=== PATIENT | male | born 1955 | race Caucasian/White ===

== ENCOUNTER 2024-12-06 08:14 | Outpatient (CLI) | payer BC, SELFPAY ==
[2024-12-06] MEDS: REGADENOSON 0.4 MG/5 ML SYRINGE IVP (11:09)
[2024-12-06] MEDS: SODIUM CHLORIDE 0.9 % (FLUSH) 10 ML SYRINGE IVF (11:11)
[2024-12-06 11:40] VITALS: BP 127/81; PULSE 87
--- NOTE | 2024-12-06 12:37 | P.STN_ITS ---
Stress Test Note Date Date Seen: 12/06/24 Date of test: 12/06/24 Providers Referring provider: Vanessa Alvarenga Primary care provider: Gordon Warren Stress test physician: Dana Mejia Stress Test Note Stress test ordered: Lexiscan Indication for test: Atrial fibrillation Stress test medicine: Lexiscan Results discussion: Resting EKG: Atrial fibrillation, ventricular rate 81 beats per minute. Resting blood pressure: 141/83 Stress test: Patient is consented on Lexiscan that has been ordered for his cardiac stress test, he agrees to proceed. Patient was able to perform walking Lexiscan. He had no symptoms during this test. There was no definitive ischem ia, maintained atrial fibrillation during the test. There was no concerning blood pressure changes. Patient will be discharged after obtaining his post stress nuclear images. Impression: Atrial fibrillation, negative objective symptoms: await nuclear images to couple this for a full formal diagnostic test. Follow up suggested: Patient will have post-stress images obtained and then discharge to home. He will wait to hear from Dr. Warren for final results.
== END 2024-12-06 08:15 | disposition home or self-care (01) ==
LOC: STRESS 08:24
PROVIDERS: PCP Family Medicine; Visit Provider Internal Medicine
DX: I48.91 Unspecified atrial fibrillation (principal); I10 Essential (primary) hypertension; R94.31 Abnormal electrocardiogram [ECG] [EKG]
CPT/HCPCS: 78452; 93016; 93017; A9500; J2785

== ENCOUNTER 2025-05-10 15:02 | Emergency (ER) | payer BC, SELFPAY ==
[2025-05-10] VITALS (19 sets, daily range): BP systolic 117–125; BP diastolic 68–82; PULSE 61–75; RESP 15–29; TEMP 36.3; O2SAT 95–98; BMI 32.1
--- OUTSIDE RECORDS SUMMARY | 2025-05-10 15:05 | XMS_ITS | Clinical Summary ---
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 90 Tablet 3 4 Active doxazosin (CARDURA) 4 mg tabletIndication s:HTN (hypertension) Take 1 Tablet (4 mg) by mouth at bedtime. 90 Tablet 3 4 Active lisinopriL (PRINIVIL; ZESTRIL) 40 mg tabletIndication s:Hypertension, unspecified type Take 1 Tablet (40 mg) by mouth once daily. 90 Tablet 3 4 Active vit A/vit C/vit E/zinc/copper (PRESERVISION AREDS ORAL) Take 1 Tablet by mouth two times daily. Active rivaroxaban (Xarelto) 20 mg tabletIndication s:New onset atrial fibrillation (HC) Take 1 Tablet (20 mg) by mouth once daily with evening meal. 90 Tablet 3 5 Active sotaloL (BETAPACE) 80 mg tabletIndication s:Paroxysmal atrial fibrillation (HC) Take 1 Tablet (80 mg) by mouth two times daily before meals. 60 Tablet 3 5 Active rosuvastatin (CRESTOR) 10 mg tabletIndication s:Elevated LDL cholesterol level Take 1 Tablet (10 mg) by mouth at bedtime. 90 Tablet 3 5 Active prednisoLONE acetate 1% ophthalmic (Pred Forte) suspensionIndica tions:Nuclear sclerotic cataract of left eye Start drops in affected eye after surgery Left eye 10/06/24 One drop four times a day for three weeks. 5 mL 1 5 05/03/20 25 Discontin ued(*Maribel ent states no longer taking) hydrocortisone 1 % creamIndications :Paroxysmal atrial fibrillation (HC) Apply topically to affected area(s) 4 times daily if needed for Itching. 5 05/03/20 25 Discontin ued(*Maribel ent states no longer taking) Active Problems Problem Noted Date Diagnosed Date Impaired fasting glucose 08/05/2012 Elevated LDL cholesterol level 08/05/2012 HTN (hypertension) 07/22/2012 Benign neoplasm of colon 11/29/2008 Overview (11/03/2023): Colonoscopy 11/2008 polyp repeat in 5 years Colonoscopy 10/2023 3-TA, repeat in 5 years Encounters Date Type Department Care Team Description 05/10/2025 Telephone [facility] [address] [place] [address] Woody Grayson MD Appointment 05/10/2025 Travel 05/10/2025 Nurse Triage [facility] [address] [place] [address] VoteGordon garcia MD Lightheaded 05/03/2025 1:00 PM CDT Office Visit [facility] [id number] [place] [address] [address] [place] [address] Sandra Brice PA Follow Up (FOLLOW UP, CARDIOVERSION DONE 03/20, NEEDS DOT CLEARANCE, DX: Paroxysmal atrial fibrillation (HC) [I48.0] PT states feeling fine, no cardiac symptoms today. Just see how he is doing, nothing else to note. ) 05/03/2025 Travel 03/24/[address] [facility] [address] [place] [address] Jimena Cruz NP 1 scan: (1-Ord) NFLD-EKG-03/23/25 03/23/2025 11:00 AM CDT Nurse/Clinic Staff Only [facility] [address] [place] [address] Cardiovascular Diagnostic Testing (EKG PER JIMENA CRUZ NP/DR. ALVARENGA ) 03/22/2025 Travel 03/20/2025 12:31 PM CDT Anesthesia Event [facility] [address] [place] [address] Lc Portillo MD 03/20/2025 9:56 AM CDT - 03/20/2025 2:33 PM CDT Hospital Encounter [facility] [address] [place] [address] Vanessa Alvarenga MD Geniesse, Brian Christopher, JUICE Haywood, Janet Boyce MD Paroxysmal atrial fibrillation (HC) Discharge Disposition: Home Self Care 03/20/2025 Travel 03/15/2025 8:00 AM CDT Office Visit [facility] [address] [address] Vanessa Alvarenga MD Follow Up (3 month follow up - [facility]06 at [place]Dx: Paroxysmal atrial fibrillation (HC) [I48.0] /PT states feeling good. New onset AFIB. - No cardiac symptoms today. Discuss plan of care.) 03/15/2025 Travel 02/11/2025 Refill [facility] [address] [address] aVnessa Alvarenga MD Refill Request (Xarelto) from Last 3 Months Immunizations Immunization Administration Dates Next Due Tdap 06/17/2018 Zoster (Shingrix-RZV, recombinant) 08/23/2020, Family History Medical History Relation Name Comments Lung disease Father Cancer Mother Uterus Relation Name Status Comments Father Mother Social History Tobacco Use Types Packs/Day Years Used Date Smoking Tobacco: Former Cigarettes Q uit: 08/24/1999 Smokeless Tobacco: Never Tobacco Cessation:Counseling Given: Yes Alcohol Use Standard Drinks/Week Comments Yes 0 (1 standard drink = 0.6 oz pur e alcohol) 24 drinks per week PHQ-2 Answer Date Recorded PHQ-2 TOTAL SCORE 0 06/22/2024 Social Connections Answer Date Recorded Do you often feel lonely or isolated from those around you? 0 09/27/2024 Alcohol Use Answer Date Recorded How often do you have a drink containing alcohol ? 4 05/03/2025 How many drinks containing a lcohol do you have on a typical day when you are drinking? 1 05/03/2025 How often do you have five or more drinks on one occasion? 4 05/03/2025 Financial Resource Strain Answer Date R ecorded Difficulty of Paying Living Expenses 3 09/27/2024 Difficulty of Paying Living Expenses Not on file 09/27/2024 Food Insecurity Answer Date Recorded Do you worry your food will run out before you are able to buy more? 1 09/27/2024 Transportation Needs Answer Date Record ed Does lack of transportation keep you from medica l appointments? 1 09/27/2024 Does lack of transportation keep you from work, meetings or getting things that you need? 1 09/27/2024 Housing Stability Answer Date Recorded What is your housing situation today? 1 09/27/2024 Interpersonal Safety Answer Date Record ed Are you being hit, kicked, p ushed or yelled at (see row info)? No 03/20/2025 Interpersonal Safety Abuse 12 - 18 Not on file 03/20/2025 Interpersonal Safety Ambulatory Vulnerability No t on file 03/20/2025 Utilities Answer Date Recorded Do you have trouble paying f or utilities (for example, heat, electricity, water, phone)? 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[employer] Gender Identity Not on file Sexual Orientation Not on file Travel History Travel Start Travel End [place] 04/23/2025 05/01/2025 Obstetrics History Last Filed Vital Signs Vital Sign Reading Time Taken Comments Blood Pressure 122/82 05/03/2025 1:02 PM CDT Pulse 72 05/03/2025 1:02 PM CDT Temperature 36.6 C (97.8 F) 10/06/2024 7:30 AM ARTIST [employer]NEQU[employer]ING Respiratory Rate 18 03/20/2025 12:4 2 PM CDT Oxygen Saturation 97% 05/03/2025 1:02 PM CDT Inhaled Oxygen Concentration - - Weight 110.4 kg (243 lb 6.4 oz) 025 10:40 AM CDT Height 188 cm (6' 2) 03/20/2025 10:40 AM CDT Body Mass Index 31.25 03/20/2025 10:40 AM CDT Plan of Treatment Health Maintenance Due Date Last Done Comments Hepatitis C screening for age 18-79 1975 Pneumococcal series for age 50+ (1 of 2 - PCV) 1976 RSV vaccine for adults or (1 - Risk 60-74 years 1-dose series) 2017 AAA screening age 65-74 2022 COVID-19 vaccine series (2024- season) 2025 10/11/2022, 07/26/2021, 12/28/2020, Additional history exists Influenza Vaccine (#1) 2025 Depression screening for age 12+ 06/22/2025 06/22/2024, 06/24/2023, 06/11/2022, Additional history exists BMI (ht and wt on same day) for age 18+ 03/15/2026 03/15/2025, 11/23/2024, 09/28/2024, Additional history exists Tetanus booster 06/17/2028 06/17/2018 Colonoscopy through age 75 10/29/202810/29, 10/30/2023, 10/30/2023, Additional history exists Lipids for age 45-75 06/22/2029 06/22/2024, 06/24/2023, 06/11/2022, Additional history exists Zoster (shingles) series for age 50+ Completed 08/23/2020, 06/20/2020 Hepatitis B series for 19+ Aged Out N o longer eligible based on patient's age to complete this topic Medical Devices Implanted Type Area Special Education Coordinator Device Identifier Shelf Expiration Date Model / Serial / Lot Iol Titus Preload 1 Pc Clear 6mm 19.50 Diopter Tecnis - [id number] Implanted:Qty: 1 on 10/06/2024 by Guille Lakhani MD at [facility] Left: Eye [employer] 04/04/2027 [id number] / [id number] / NA Procedures Procedure Name Priority Date/Time Associated Diagnosis Comments EKG 12 LEAD Today 05/03/2025 1:08 PM CDT Screening for cardiovascular condition EKG 12 LEAD Routine 03/24/2025 12:59 PM CDT Paroxysmal atrial fibrillation (HC) EKG 12 LEAD Post Op 03/20/2025 12:36 PM CDT ISTAT CHEM 8 Timed 03/20/2025 11:02 AM CDT EKG 12 LEAD Preop 03/20/2025 10:32 AM CDT SCAN-CARDIAC STRIP 03/20/2025 12 :00 AM CDT EXTENDED HOLTER Routine 02/13/2025 Longstanding persistent atrial fibrillation (HC) LIPID PANEL W REFLEX MEASURED LDL Routine 06/22/2024 8:20 AM CDT Elevated LDL cholesterol level COLONOSCOPY SCREENING Routine 10/30/2023 10:16 AM ARTIST [employer]NEQUIN COLORING Positive colorectal cancer screening using DNA-based stool test from Last 3 Months or Most Recently Relevant to Health Maintenance Results * EKG 12 LEAD (05/03/2025 1:08 PM CDT) Only the most recent of4 resultswithin the time period is included. Pathologist [facility] Interpretation Atrial fibrillation Abnormal ECG When compared with ECG of 20-Mar-2025 12:36, Atrial fibrillation has replaced Sinus rhythm Non-specific change in ST segment in Inferior leads Ventricular Rate 72 BPM Atrial Rate BPM P-R Interval ms QRS Duration 88 ms QT 394 ms QTc 431 ms P [place] degrees R [place] 80 degrees T [place] 77 degrees 05/03/2025 1:08 PM CDT 05/04/2025 1:40 PM CDT Sandra HILTON EKG ORD Final Res ult * ISTAT CHEM 8 (03/20/2025 11:02 AM CDT) Pathologist [facility] SODIUM, POCT 03/21/2025 5:54 AM CDT [facility] Comment:Unable to determine. POTASSIUM, POCT 4.3 3.5 - 5.0 mmol/L 03/21/2025 5:54 AM CDT [facility] CHLORIDE, POCT 03/21/2025 5:54 AM CDT [facility] Comment:Unable to determine. CO2,TOTAL, POCT 03/21/2025 5:54 AM CDT [facility] Comment:Unable to determine. ANION GAP, POCT 03/21/2025 5:54 AM CDT [facility] Comment:Unable to calculate. GLUCOSE, POCT 03/21/2025 5:54 AM CDT [facility] Comment:Unable to determine. IONIZED CALCIUM, POCT 03/21/2025 5:54 AM CDT [facility] Comment:Unable to determine. BUN, POCT 03/21/2025 5:54 AM CDT [facility] Comment:Unable to determine. CREATININE, POCT 03/21/2025 5:54 AM CDT [facility] Comment:Unable to determine. BUN/CREAT RATIO, POCT 03/21/2025 5:54 AM CDT [facility] Comment:Unable to calculate. eGFR 03/21/2025 5:54 AM CDT [facility] Comment:Unable to calculate. HEMATOCRIT, POCT 03/21/2025 5:54 AM CDT [facility] Comment:Unable to determine. HEMOGLOBIN, POCT 03/21/2025 5:54 AM CDT [facility] Comment:Unable to determine. Blood BLOOD SPECIMEN / Unknown 03/20/2025 11:02 AM CDT 03/21/2025 5:54 AM CDT [facility] Luis M Alvarenga MD CHEMISTRY Final Result [facility] [address] [place] [address], [place] * SCAN-CARDIAC STRIP (03/20/2025 12:00 AM CDT) Narrative 03/20/2025 12:00 AM CDT Ordered by an unspecified provider. us Other Clinical Staff OTHER Final Resul t * ZIO PATCH XT - weekly to monthly symptoms. (02/13/2025) 02/13/2025 Narrative Silvia Moreno MD - 03/07/2025 12:00 AM CDT Agree with Findings. Please see scan document for full report. Signed By Silvia Moreno MD Procedure Note Silvia Moreno MD - 03/07/2025 Agree with Findings. Please see scan document for full report. Signed By Silvia Moreno MD Vanessa Alvarenga MD CARDIAC SERVICES ORD Final Re sult * LIPID PANEL W REFLEX MEASURED LDL (06/22/2024 8:20 AM CDT) CHOLESTEROL, TOTAL 199 <200 mg/dL [facility] HDL CHOLESTEROL 89 > OR = 40 mg/dL [facility] TRIGLYCERIDES 46 <150 mg/dL [facility] LDL-CHOLESTEROL 96 mg/dL (calc) [facility] Comment: Reference range: <100 Desirable range <100 mg/dL for primary prevention; <70 mg/dL for patients with CHD or diabetic patients with > or = 2 CHD risk factors. LDL-C is now calculated using the Micheal-Sharma calculation, which is a validated novel method providing better accuracy than the Friedewald equation in the estimation of LDL-C. Micheal SS et al. CIERA. 2013;310(19): 3855-0473 (http://education.MV Sist[employer].NurseGrid/faq/MGP818) CHOL/HDLC RATIO 2.2 <5.0 (calc) [facility] NON HDL CHOLESTEROL 110 <130 mg/dL (calc) [facility] Comment: For patients with diabetes plus 1 major ASCVD risk factor, treating to a non-HDL-C goal of <100 mg/dL (LDL-C of <70 mg/dL) is considered a therapeutic option. Blood BLOOD SPECIMEN / Unknown 06/22/2024 8:20 AM CDT 06/22/2024 8:21 AM CDT Gordon Warren MD CHEMISTRY Final Re sult [employer] [facility] [address] [place] [address], [facility] [address] [place] [address] * COLONOSCOPY (10/30/2023 10:57 AM ARTIST MANNEQUIN COLORING) 10/30/2023 10:5 7 AM ARTIST MANNEQUIN COLORING Narrative Transcriptions Micheal Clayton MD - 10/30/2023 11:41 AM CST Patient Name: Uziel Gonzalez Procedure Date: 10/30/2023 Gender: Male Date of : 1955 Admit Type: Outpatient Procedure: Colonoscopy Proceduralist: Micheal Clayton MD , Ashly Monreal (Nurse), Amber Mtz (Nurse) Referring MD: Gordon Warren Indications/Pre-Op Diagnosis: Last colonoscopy: November 2008, Positive Cologuard test Medications: Fentanyl 100 micrograms IV, Midazolam 4 mgIV, The level of sedation administered wasmoderate Procedure Description: The patient had risks, benefits and alternatives explained to andgave informed consent. The patient had a stable cardiopulmonary status and judged an adequate candidate for conscious sedation. The endoscope [id number] was passed through the anus andadvanced to the cecum, identified by appendiceal orifice and ileocecal valve.The colonoscopy was performed without difficulty. The patient toleratedthe procedure well. The quality of the bowel preparation was good. The ileocecal valve, appendiceal orifice, and rectum were photographed. Complications: No immediate complications. Estimated Blood Loss & Specimen: Estimated blood loss: none. Specimen collected - Yes and sent to Laboratory Findings: The perianal and digital rectal examinations were normal. A 3 mm polyp was found in the cecum. The polyp was sessile. The polyp was removed with a cold snare. Resection and retrieval werecomplete. A 4 mm polyp was found in the ascending colon. The polyp was sessile. The polyp was removed with a cold snare. Resection and retrieval were complete. A 2 mm polyp was found in the ascending colon. The polyp was sessile. The polyp was removed with a cold biopsy forceps. Resection was complete, but the polyp tissue was not retrieved. A 5 mm polyp was found in the rectum. The polyp was pedunculated. The polyp was removed with a cold snare. Resection and retrieval were complete. The exam was otherwise without abnormality on direct and retroflexion views. Impressions/Post-Op Diagnosis: - One 3 mm polyp in the cecum, removed with a cold snare. Resectedand retrieved. - One 4 mm polyp in the ascending colon, removed with a cold snare. Resected and retrieved. - One 2 mm polyp in the ascending colon, removed with a cold biopsy forceps. Complete resection. Polyp tissue not retrieved. - One 5 mm polyp in the rectum, removed with a cold snare. Resectedand retrieved. - The examination was otherwise normal on direct and retroflexionviews. Recommendation: - Patient has a contact number available for emergencies. The signsand symptoms of potential delayed complications were discussed with the patient. Return to normal activities tomorrow. Written discharge instructions were provided to the patient. - Resume previous diet. - Continue present medications. - Await pathology results. - Repeat colonoscopy is recommended. The colonoscopy date will be determined after pathology results from today's exam become available for review. Moderate Sedation: A time out was performed before the procedure. Moderate (conscious) sedation was administered by the endoscopy nurse and supervised bythe endoscopist. The following parameters were monitored: oxygensaturation, heart rate, blood pressure, EKG, CO2, respiratory rate, adequacy of pulmonary ventilation and reponse to care. Please refer to the patient's medical record flowsheets and nursing notes for moderate sedation details. Total physician intraservice time was 26 minutes. Micheal Clayton MD 10/30/2023 11:39:15 AM This report has been signed electronically. Note Initiated On: 10/30/2023 10:57 AM Procedure Code(s): --- Professional --- 45992, Colonoscopy, flexible; with removalof tumor(s), polyp(s), or other lesion(s) bysnare technique 96674, 59, Colonoscopy, flexible; withbiopsy, single or multiple Diagnosis Code(s): --- Professional --- D12.0, Benign neoplasm of cecum D12.2, Benign neoplasm of ascending colon D12.8, Benign neoplasm of rectum R19.5, Other fecal abnormalities CPT copyright 2021 [employer]. All rights reserved. The codes documented in this report are preliminary and upon auditing coder reviewmay be revised to meet current compliance requirements. 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
--- NOTE | 2025-05-10 15:20 | ED.GENADULT ---
HPI - General Adult General Time Seen by Provider: 15:20 Date Seen: 05/10/25 Chief complaint: Cough Stated complaint: SOB, Light headed, cough- has AFIB Time Seen by Provider: 05/10/25 15:08 Source: patient and RN notes reviewed Mode of arrival: ambulatory Limitations: no limitations History of Present Illness HPI narrative: This 70-year-old male is referred by Urgent Care today for further workup of cough, shortness of breath and lightheadedness. Patient was in urgent care earlier today and there was discussion about his atrial fibrillation, his pulse is being low at 1 time at 52. There was no documentation of it being elevated. We did review that atrial fibrillation is rate controlled when it is between 60-100. Sometimes patients will drop a little lower but if they are not going severely bradycardic they should be fine. Brief small episodes above 100 are usually well tolerated by patients. It is when there is sustained tachycardia or bradycardia that rate control issues are considered. He certainly does not seem to have that right now. He is anticoagulated with Xarelto and has not missed any doses. He had a myocardial perfusion scan here in November which was normal. He states the person told them that they were at the limits of what they could do there, he could be having issues with potentially impending stroke or heart attack given his symptoms. He has been sick going on 8 days now. They all did not feel well coming back from [place]. They did land 2 hour of [place] and were gone for about 9 days. He has had cough and congestion. He has felt short of breath. He did not go to work last week for while due to his symptoms. He has felt lightheaded. No chest pain. COVID was done in Urgent Care, was a PCR and has come back positive. He was not aware of that. He had EKGs and a basic metabolic panel that were reassuring, sodium just minimally low at 131 but not something assess the taping emergent intervention. His 1st EKG had a heart rate of 66 and a 2nd EKG at a heart rate of 52. I have included the formal radiology over read of his x-ray from urgent care. There was no acute pathology. Related Data Home Medications ?Medication ?Instructions ?Recorded ?Confirmed amlodipine 10 mg tablet 10 mg PO DAILY 05/10/25 05/10/25 doxazosin 4 mg tablet 4 mg PO DAILY 05/10/25 05/10/25 lisinopril 40 mg tablet 40 mg PO DAILY 05/10/25 05/10/25 metoprolol succinate 25 mg 25 mg PO DAILY 05/10/25 05/10/25 tablet,extended release 24 hr rivaroxaban 20 mg tablet (Xarelto) 20 mg PO DAILY 05/10/25 05/10/25 rosuvastatin 10 mg tablet 10 mg PO QPM 05/10/25 05/10/25 sotalol 80 mg tablet 80 mg PO BID 05/10/25 05/10/25 Allergies Allergy/AdvReac Type Severity Reaction Status Date / Time No Known Drug Allergies Allergy Verified 05/10/25 15:09 Review of Systems Status of ROS: Reports: 6 or more systems reviewed and unremarkable except as noted in History and below [facility] Social History Smoking Status: Never smoker Exam Const: Vital Signs, click to edit/add: Vital Signs - 24 hr 05/10/25 15:15 05/10/25 15:18 05/10/25 16:50 Temperature 97.4 F L Pulse Rate [Pulse Oximeter] 68 73 Pulse Rate [orthos tatic lying] 63 Pulse Rate [orthos tatic sitting] 70 Pulse Rate [orthos tatic standing] 75 Respiratory Rate 16 Blood Pressure [Le ft Upper Arm] 117/68 Blood Pressure [Ri ght Upper Arm] 117/68 Blood Pressure [or thostatic lying] 121/77 Blood Pressure [or thostatic sitting] 121/79 Blood Pressure [or thostatic standing ] 125/82 Pulse Oximetry 98 98 Oxygen Delivery Me thod Room Air This 70-year-old male is alert, interactive, no apparent distress. He is seen in exam room 4, sitting up in a chair. He is wearing a mask. Sclera clear, speech is normal. Neck is supple, no adenopathy or masses. Lungs are clear, good air entry, no wheezing or crackles, no tachypnea, no accessory muscle use. Heart rate is controlled, somewhat irregular, no murmur noted, normal S1-S2, no S3-S4. He has sock line in did take a shins but he states his legs are at baseline, no edema. Abdomen soft, nontender. Documenting provider has reviewed patient's vital signs: yes Course Course ED Course: We will obtain a troponin and a CBC on this patient. Unfortunately, he likely is having ongoing symptoms from COVID that there is nothing for us to intervene on. His EKG here today shows he is rate controlled. He is not hypoxic. He is well out of treatment window for medications for COVID and Paxlovid is theoretically contraindicated with the Xarelto. The Xarelto should prevent him from having thrombotic events such as strokes from COVID. Likewise with a normal nuclear medicine test this November, anticoagulation with Xarelto, I really a.m. not worried about any concern for ischemic disease. We will do orthostatics on him as well. He may just have some lingering longer-term COVID symptoms. He may unfortunately be somebody that is going to take longer to resolve. Reevaluation(s) Time of Reevaluation #1: 17:21 Reevaluation #1: Have reviewed with patient that his orthostatic vitals were good. He has been on monitoring here, his rate control is excellent, no hypoxia, O2 sats in the upper 90s. His troponin is normal. We reviewed his recent nuclear medicine stress test without any ischemia which is certainly reassuring. He is on Xarelto which would protect against thrombotic strokes or blood clots from complications of COVID. I think his symptoms are still from COVID. His wanted to know about still being infective to others. His test was a PCR earlier, antigen testing would tell us about ongoing viral shedding. They can do that outpatient if they desire. He notes overall his cough is much improved, not like it was the beginning. 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 I reviewed with him that that is certainly the case but he has complicating COVID now which I think is responsible for his symptoms. He has no evidence of any congestive heart failure, his rate is controlled. I think he is reasonable for discharge to home without any further workup. We did discuss ongoing monitoring and he may need to return. I have recommended that they get a pulse oximeter. Patient was able to go for a walk this morning without difficulty. His white blood count is normal and not indicative an occult secondary bacterial infection. Again, he had a normal chest x-ray from urgent care. Vital Signs Vital signs: Initial Vital Signs Pulse Rate 68 09/17/25 15:15 Pulse Rhythm Irregular 05/10/25 15:15 Blood Pressure 117/68 05/10/25 15:15 Blood Pressure Mean 84 05/10/25 15:15 Blood Pressure Position Sitting 05/10/25 15:15 Pulse Oximetry 98 05/10/25 15:15 Oxygen Delivery Method Room Air 05/10/25 15:15 Vital Signs Pulse Rate 68 05/10/25 15:15 Blood Pressure 117/68 05/10/25 15:15 Pulse Oximetry 98 05/10/25 15:15 Oxygen Delivery Method Room Air 05/10/25 15:15 Temperature 97.4 F L 05/10/25 15:18 Pulse Rate 63 05/10/25 16:50 Respiratory Rate 16 05/10/25 15:18 Blood Pressure 121/77 05/10/25 16:50 Pulse Oximetry 98 05/10/25 15:18 Oxygen Delivery Method Room Air 05/10/25 15:15 Medical Decision Making Lab Data Lab results reviewed: Yes I reviewed the patient's lab results Labs: Lab Results 05/10/25 05/10/25 Range/Units 15:47 16:15 WBC 6.89 (4.50-11.00) K/uL RBC 4.27 L (4.30-5.90) m/uL Hgb 12.8 L (13.5-17.5) gm/dL Hct 37.2 (37.0-53.0) % MCV 87 (80-100) fL MCH 30 (26-34) pg MCHC 34 (32-36) gm/dL RDW Coeff of Marianne 11.7 (11.5-15.5) % Plt Count 370 (140-440) K/uL Neut % (Auto) 62.0 (42.0-72.0) % Lymph % (Auto) 20.3 (20-44) % [place] % (Auto) 13.1 H (0.0-11.0) % Eos % (Auto) 3.0 (0.0-7.0) % Baso % (Auto) 0.9 (0.0-3.0) % Neut # (Auto) 4.27 (1.7-7.0) K/uL Lymph # (Auto) 1.40 (0.90-2.90) K/uL [place] # (Auto) 0.90 (0.00-0.90) K/UL Eos # (Auto) 0.21 (0.00-0.50) K/uL Baso # (Auto) 0.06 (0.00-0.30) K/uL Abs Immat Gran (auto) 0.05 (0.00-0.30) K/uL Imm/Tot Granulo (auto) 0.7 % POC Troponin I 0.00 L (0.01-0.04) ng/ml Imaging Data Chest x-ray: Attestation: I have reviewed the pertinent imaging results. Radiologist's impression: Patient: FILEMON MAYS Facility:?[facility] Patient ID:?[id number] Site Patient ID:?[id number]. Site :?[id number] Study:?XRay-Chest 2 V-05/10/2025 2:38:59 PM Ordering Physician:?Asael Will Final Report: INDICATION: Lightheadedness TECHNIQUE: Chest 2 views COMPARISON: None FINDINGS: Cardiovascular and mediastinum: Cardiac silhouette is mildly enlarged. There is tortuosity of the descending thoracic aorta. Lungs and pleural spaces: Lungs are clear. No sign of infiltrate or mass. No sign of pleural effusion. No pneumothorax. Bones and soft tissues: No significant findings. IMPRESSION: No acute findings. Dictated by Billy Bowles MD @ 05/10/2025 2:43:59 PM (Electronic Signature) ECG Data Attestation: I personally reviewed and interpreted this ECG as follows: (Atrial fibrillation, 70 beats per minute. No ischemic change.) Prior ECG tracings: available for review Discharge Plan Discharge Clinical Impression: COVID-19 Patient Disposition: Home, Self-Care Condition: Stable Instructions: COVID-19 (Coronavirus Disease 2019) (ED) Additional Instructions: Recommend obtaining a pulse oximeter. If your oxygen saturations are going below 90%, do need to be re-evaluated. If you have worsening shortness of breath, develops worsening cough or fever, do need to be re-evaluated. Your goal heart rate with atrial fibrillation should be between 60-100. If you noticing rhythm disturbances or elevated pulse rate, please seek re-evaluation. I do think your symptoms are likely stemming from COVID. Continue to monitor, follow-up within the next week with your primary care provider if ongoing issues. Continue to take your current medications and on and this does include the Xarelto. Activity Level: Activity as Tolerated Prescriptions: No Action sotalol 80 mg tablet 80 mg PO BID amlodipine 10 mg tablet 10 mg PO DAILY doxazosin 4 mg tablet 4 mg PO DAILY metoprolol succinate 25 mg tablet extended release 24 hr 25 mg PO DAILY lisinopril 40 mg tablet 40 mg PO DAILY rosuvastatin 10 mg tablet 10 mg PO QPM Xarelto 20 mg tablet 20 mg PO DAILY Follow Up/Referrals: Gordon Warren MD [Primary Care Provider, Family Practice] Stand Alone Forms: [employer] Info Instructions
[2025-05-10 16:29] LABS: Troponin, Point-of-Care* 0.00 ng/ml (0.01-0.04)
[2025-05-10 16:29] LABS: Hematocrit* 37.2 % (37.0-53.0); Hemoglobin* 12.8 gm/dL (13.5-17.5); Immature Granulocytes Abs Auto 0.05 K/uL (0.00-0.30); Immature Granulocytes Pct Auto 0.7 %; Lymphocytes Absolute Auto 1.40 K/uL (0.90-2.90); Mean Corpuscular HGB Conc 34 gm/dL (32-36); Mean Corpuscular Hemoglobin 30 pg (26-34); Mean Corpuscular Volume 87 fL (80-100); RDW Coefficient of Variation % 11.7 % (11.5-15.5); Red Blood Count* 4.27 m/uL (4.30-5.90); White Blood Count* 6.89 K/uL (4.50-11.00)
[2025-05-10 16:35] LABS: Slide Review Reflex No
== END 2025-05-10 17:37 | disposition home or self-care (01) ==
PROVIDERS: Emergency Provider Family Medicine; PCP Family Medicine
DX: U07.1 COVID-19 (principal)
CPT/HCPCS: 36415; 84484; 85025; 99283